=== PATIENT | female | born 1960 | race Caucasian/White ===

== ENCOUNTER 2017-12-03 00:43 | Emergency (ER) | payer OTHER, SELFPAY ==
[2017-12-03] VITALS (7 sets, daily range): BP systolic 130–159; BP diastolic 68–87; PULSE 90–107; RESP 12–20; TEMP 36.4–36.6; O2SAT 97–100; BMI 28.1
--- NOTE | 2017-12-03 00:47 | DI.US.S_ITS ---
PROCEDURE: US PERIPH VENOUS UP EXTREM RT INDICATIONS: pain, swelling RUE, recent surgeries, hx CA TECHNIQUE: Real-time imaging, as well as color and pulse Doppler interrogation, was performed of the right upper extremity deep veins from the inferior neck to the antecubital fossa. COMPARISON: None. FINDINGS: The internal jugular vein, visualized portions of the subclavian vein, axillary, and brachial veins are free of intraluminal thrombus. Where physically possible, the veins are normally compressible. Color and pulse Doppler demonstrate normal intraluminal flow, with expected phasicity and pulsatility. Additional scanning of the cephalic and basilic veins of the superficial system demonstrate normal compressibility, without thrombus. IMPRESSION: No DVT found. Dictated by: Lj Cheatham M.D. on 12/03/2017 at 9:21 Approved by: Lj Cheatham M.D. on 12/03/2017 at 9:21
--- NOTE | 2017-12-03 01:05 | ED.NAVMDI ---
HPI - Nausea/Vomiting/Diarrhea General Chief complaint: Nausea/Vomiting/Diarrhea Stated complaint: Vomiting Time Seen by Provider: 12/03/17 00:46 Source: patient, family and EMS Mode of arrival: EMS Limitations: no limitations History of Present Illness HPI Narrative: Pleasant 57-year-old female presents by air medical ambulance with her sister and a chief complaint intractable vomiting over the course of the day. 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 She has had multiple surgical complications the right shoulder tumor including most recently a revision flap about a month ago at [facility] in [place]. Additionally she complains of increasing pain at the base of her neck and right shoulder including swelling of the right upper extremity. She denies any injury nor numbness or tingling that is new. Patient states these circumstances are very similar to her prior experiences with wound infections from her initial surgery. Patient last received chemotherapy 8 weeks ago and last receive radiation prior to the surgery. Patient denies any abdominal pain but does complain significant nausea. MD complaint: nausea and vomiting Onset (ago): hour(s) Description of Vomiting: bilious Description of Diarrhea: none Associated Abdominal Pain: Yes Location of pain: diffuse Radiation: diffuse Quality: cramping Pain Consistency: constant Relieving factors: none Exacerbating factors: none Related Data Allergies Allergy/AdvReac Type Severity Reaction Status Date / Time No Known Drug Allergies Allergy Verified 12/03/17 01:19 Review of Systems Review of Systems All systems reviewed & are unremarkable except as noted in HPI and below Constitutional Denies chills, Denies fever(s), Denies lethargy and Reports weakness Eyes Denies change in vision, Denies eye discharge, Denies irritation and Denies loss of vision ENT Ears, Nose, Mouth, and Throat: Denies change in voice, Reports neck pain and Denies sore throat Cardiovascular Denies chest pain, Denies irregular heart rhythm, Denies lightheadedness, Denies palpitations, Denies dyspnea, Denies dyspnea on exertion and Denies orthopnea Respiratory Denies cough, Denies dyspnea, Denies dyspnea on exertion and Denies wheezing Gastrointestinal Gastrointestinal: Denies abdominal pain, Denies change in bowel habits, Denies diarrhea, Reports nausea and Reports vomiting Genitourinary Denies hematuria, Denies flank pain, Denies urinary incontinence and Denies urinary urgency Musculoskeletal Reports joint swelling, Reports limited range of motion and Reports neck pain Integumentary/Breasts Denies pruritus, Denies erythema, Denies rash and Denies wounds Neurologic Denies confusion, Denies loss of vision and Reports weakness Psychiatric Denies anxiety, Denies confusion, Denies depression, Denies homicidal ideation and Denies suicidal ideation Endocrine Denies palpitations Hematologic/Lymphatic Denies easy bruising Allergic/Immunologic Denies wheezing PFSH Medical History Leiomyosarcoma (Acute) Lymphoma (Acute) Status post chemoradiation (Acute) Exam Narrative Exam Narrative: Ill-appearing 57-year-old female in obvious distress, holding an emesis back Initial Vital Signs Initial Vital Signs: Vital Signs Temperature 97.9 F 12/03/17 00:45 Pulse Rate 107 H 12/03/17 00:45 Respiratory Rate 20 12/03/17 00:45 Blood Pressure 153/77 H 12/03/17 00:45 Pulse Oximetry 100 12/03/17 00:45 Const General: cooperative, well developed and acute distress Nutritional Appearance: well nourished and overweight Orientation: alert, awake, oriented x3 and not confused HENNV Head: normocephalic and atraumatic Ears: external ears normal and TM's normal bilaterally Nose: external nose normal and No nasal discharge Face and sinus: sinuses nontender, face symmetric, no sinus tenderness and No dry mucous membranes Mouth: oral mucosae normal and moist mucous membranes Teeth and gingiva: dentition normal Throat: tonsils normal and uvula midline Eyes General: appearance normal, both eyes and all related structures Eyelids: eyelids normal Conjunctivae: conjunctivae normal Sclera: sclerae normal Pupils: PERRL EOM: EOM intact bilaterally Neck Neck: trachea midline, No lymphadenopathy, No midline deformity and No JVD Lymphatic: No lymphedema Other: Erythema, induration and redness at base of right neck, location multiple prior surgeries. Patient states she thinks this may be her baseline but is unsure Chest Chest: normal inspection of the chest Resp Effort & Inspection: normal respiratory effort, able to speak in complete sentences, no respiratory distress and no use of accessory muscles Auscultation: clear to auscultation bilaterally, no rales, no rhonchi and no wheezes Cardio Rate: regular rate Rhythm: regular rhythm Heart Sounds: no click, no gallops, no murmurs and no rubs Pulses: normal peripheral pulses GI Inspection: non-distended Palpation: soft, no hepatosplenomegaly, No guarding, No pulsatile mass and No tender Auscultation: normal bowel sounds Back/Spine/Pelvis Back: No CVA tenderness Cervical Spine: cervical ROM normal and No pain with cervical ROM Thoracic/Lumbar Spine: thoracic and lumbar spine normal to inspection Skin General: no rashes or lesions noted, No jaundice and No petechiae Neuro General: alert, oriented x3, gait normal and no focal motor deficits Speech: speech normal Extrem General: full ROM, no clubbing, cyanosis or edema, no pedal edema and no calf tenderness Right upper extremity: edema Psych Appearance: well kempt Mental Status: mental status grossly normal Attitude: cooperative Thought Content: normal and suicidality Judgment: judgment good Course Orders Ordered: ED Orders 12/03/17 00:47 US periph venous up extrem rt Stat 12/03/17 01:33 Basic Metabolic Panel Stat Bilirubin Total Stat Complete Blood Count AUTO DIFF Stat Procalcitonin Stat 12/03/17 02:20 CT UE RT w con Stat 12/03/17 02:54 Blood Culture Stat Lactate (Lactic Acid) Stat Potassium Chloride 40 meq/ (Sodium Chloride) 520 mls @ 130 mls/hr IV NOW ONE Stop: 12/03/17 07:57 Last Admin: 12/03/17 04:42 Dose: 130 mls/hr Ondansetron HCl (Zofran) 4 mg IV Q4HR PRN PRN Reason: Nausea And Vomiting Last Admin: 12/03/17 01:48 Dose: 4 mg Discontinued Medications Sodium Chloride (Normal Saline 0.9%) 1,000 mls @ 1,000 mls/hr IV BOLUS ONE Stop: 12/03/17 04:44 Last Admin: 12/03/17 03:54 Dose: 1,000 mls/hr Metoclopramide HCl (Reglan) 10 mg IV NOW ONE Stop: 12/03/17 01:47 Last Admin: 12/03/17 01:48 Dose: 10 mg Pantoprazole Sodium (Protonix) 40 mg IV NOW ONE Stop: 12/03/17 00:52 Last Admin: 12/03/17 01:48 Dose: 40 mg Prochlorperazine (Compazine) 10 mg IV NOW ONE Stop: 12/03/17 06:12 Last Admin: 12/03/17 06:18 Dose: 10 mg Reevaluation(s) Reevaluation #1: Patient gained feel better in terms of her nausea. Above-stated meds have helped Consultations Consultation #1: Upon receipt of CT I placed a call to on-call orthopedics at [facility] in [place]. Upon discussing the findings and patient complaint we sure the opinion the patient is most appropriately transferred to [facility] for further evaluation, stabilization and treatment of this abscess. Additionally we sure the opinion that ER to ER transfer makes the most sense of the patient may be re-evaluated and have more rapid access to procedures. Furthermore orthopedics request no IV antibiotics at this time so as to not compromise culture of the abscess. Given the patient is not septic or even febrile this seems reasonable. Dr. Baca (ED) happy to accept patient on behalf of the ED at [facility]. Vital Signs - 8 hr 12/03/17 00:45 12/03/17 03:30 12/03/17 04:10 Temperature 97.9 F Pulse Rate 107 H 100 H 98 H Respiratory Rate 20 17 15 Blood Pressure 153/77 H Blood Pressure [Left Arm] 151/79 H 148/75 H Pulse Oximetry 100 98 12/03/17 04:12 12/03/17 05:01 12/03/17 06:12 Temperature 97.6 F Pulse Rate 101 H 97 H 99 H Respiratory Rate 16 15 12 Blood Pressure 130/68 H Blood Pressure [Left Arm] 159/83 H 159/87 H Pulse Oximetry 97 99 12/03/17 06:18 Temperature Pulse Rate 90 Respiratory Rate Blood Pressure 130/68 H Blood Pressure [Left Arm] Pulse Oximetry MDM - Nausea/Vomiting/Diarrhea Medical Records Attestation: I reviewed the patient's medical records. Lab Data Attestation: I reviewed the patient's lab results. Result diagrams: 12/03/17 01:33 12/03/17 01:33 Lab Results 12/03/17 12/03/17 12/03/17 Range/Units 01:33 01:33 01:33 WBC 9.3 (4.5-11.0) X10^3/uL RBC 3.79 L (4.0-5.2) X10^6/uL Hgb 10.8 L (12.0-16.0) g/dL Hct 32.5 L (36-46) % MCV 85.7 (80-100) fL MCH 28.4 (26-34) PG MCHC 33.2 (30-36) % RDW 14.7 (11.6-14.8) % Plt Count 351 (150-400) X10^3/uL Neut % (Auto) 86.3 H (50-75) % Lymph % (Auto) 8.9 L (25-40) % Simpson % (Auto) 4.4 (3-14) % Eos % (Auto) 0.0 L (2-4) % Baso % (Auto) 0.4 (0-2) % Neut # (Auto) 8000 H (5803-0844) /uL Platelet Estimate Clumped Platelets RBC Morphology Not Reportable Anisocytosis 1+ H Sodium 142 (137-145) mmol/L Potassium 3.1 L (3.4-5.1) mmol/L Chloride 104 (98-107) mmol/L Carbon Dioxide 25 (22-32) mmol/L BUN 11 (7-17) mg/dL Creatinine 0.80 (0.52-1.04) mg/dL Estimated GFR > 60.0 (>60) mL/min BUN/Creatinine Ratio 13.8 (6-22) Glucose 176 H (70-100) mg/dL Lactate (0.7-2.1) mmol/L Calcium 9.9 (8.4-10.2) mg/dL Total Bilirubin 0.6 (0.2-1.3) mg/dL Procalcitonin < 0.05 (<0.5) ng/mL 12/03/17 Range/Units 02:54 WBC (4.5-11.0) X10^3/uL RBC (4.0-5.2) X10^6/uL Hgb (12.0-16.0) g/dL Hct (36-46) % MCV (80-100) fL MCH (26-34) PG MCHC (30-36) % RDW (11.6-14.8) % Plt Count (150-400) X10^3/uL Neut % (Auto) (50-75) % Lymph % (Auto) (25-40) % Simpson % (Auto) (3-14) % Eos % (Auto) (2-4) % Baso % (Auto) (0-2) % Neut # (Auto) (8134-1633) /uL Platelet Estimate Clumped Platelets RBC Morphology Anisocytosis Sodium (137-145) mmol/L Potassium (3.4-5.1) mmol/L Chloride (98-107) mmol/L Carbon Dioxide (22-32) mmol/L BUN (7-17) mg/dL Creatinine (0.52-1.04) mg/dL Estimated GFR (>60) mL/min BUN/Creatinine Ratio (6-22) Glucose (70-100) mg/dL Lactate 1.6 (0.7-2.1) mmol/L Calcium (8.4-10.2) mg/dL Total Bilirubin (0.2-1.3) mg/dL Procalcitonin (<0.5) ng/mL Imaging Data Shoulder CT w/contrast: Radiologist's impression: Inflammatory stranding an ill-defined abnormal soft tissue density throughout the right lower neck supraclavicular region an axillary region, 5 mm focus of gas within soft tissue of the right lower neck, suspected phlegmon. 1.8 x 1.2 cm fluid collection containing small foci of gas adjacent to the right mid clavicle concerning for developing abscess. Airspace disease in right lung apex could represent infection or be secondary to radiation treatment RUE DVT US: Radiologist's impression: No DVT in right upper extremity MDM Narrative Medical decision making narrative: Patient has had all of her medical care regarding this diagnosis [facility] in [place]. She most recently had a complicated revision of a shoulder surgery 1 month ago. Her surgical group was contacted and they request she be transferred there for continuity of care Given the length of transfer and potential for rapid decline air transportation is the only reasonable option. Additionally [facility] was contacted and it would be no less than 10 hr from now that the patient would arrive at [facility]. [facility] has been contacted and will use fixed wing to transport patient. Critical Care Time Critical Care Time: Yes Total Critical Care Time: 45 Attestation: The high probability of a clinically significant, sudden or life threatening deterioration of the [cardiovascular, respiratory, musculoskeletal] system(s) required my full and direct attention, intervention and personal management. The aggregate critical care time was [45] minutes. This time is in addition to time spent performing reported procedures but includes the following: [x] Data Review and interpretation [x] Patient assessment and monitoring of vital signs [x] Documentation [x] Medication orders and management Discharge Plan Departure Patient Disposition: [facility] Clinical Impression: Complication, postoperative infection, Abscess of right shoulder Interventions: ED Discharge Assessment Last Done: 12/03/17 06:12
--- NOTE | 2017-12-03 01:09 | ED_ITS ---
HPI - Nausea/Vomiting/Diarrhea General Chief complaint: Nausea/Vomiting/Diarrhea Stated complaint: Vomiting Time Seen by Provider: 12/03/17 00:46 Source: patient, family and EMS Mode of arrival: EMS Limitations: no limitations History of Present Illness HPI Narrative: Pleasant 57-year-old female presents by air medical ambulance with her sister and a chief complaint intractable vomiting over the course of the day. 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 She has had multiple surgical complications the right shoulder tumor including most recently a revision flap about a month ago at [facility] in [place]. Additionally she complains of increasing pain at the base of her neck and right shoulder including swelling of the right upper extremity. She denies any injury nor numbness or tingling that is new. Patient states these circumstances are very similar to her prior experiences with wound infections from her initial surgery. Patient last received chemotherapy 8 weeks ago and last receive radiation prior to the surgery. Patient denies any abdominal pain but does complain significant nausea. MD complaint: nausea and vomiting Onset (ago): hour(s) Description of Vomiting: bilious Description of Diarrhea: none Associated Abdominal Pain: Yes Location of pain: diffuse Radiation: diffuse Quality: cramping Pain Consistency: constant Relieving factors: none Exacerbating factors: none Related Data Allergies Allergy/AdvReac Type Severity Reaction Status Date / Time No Known Drug Allergies Allergy Verified 12/03/17 01:19 Review of Systems Review of Systems All systems reviewed & are unremarkable except as noted in HPI and below Constitutional Denies chills, Denies fever(s), Denies lethargy and Reports weakness Eyes Denies change in vision, Denies eye discharge, Denies irritation and Denies loss of vision ENT Ears, Nose, Mouth, and Throat: Denies change in voice, Reports neck pain and Denies sore throat Cardiovascular Denies chest pain, Denies irregular heart rhythm, Denies lightheadedness, Denies palpitations, Denies dyspnea, Denies dyspnea on exertion and Denies orthopnea Respiratory Denies cough, Denies dyspnea, Denies dyspnea on exertion and Denies wheezing Gastrointestinal Gastrointestinal: Denies abdominal pain, Denies change in bowel habits, Denies diarrhea, Reports nausea and Reports vomiting Genitourinary Denies hematuria, Denies flank pain, Denies urinary incontinence and Denies urinary urgency Musculoskeletal Reports joint swelling, Reports limited range of motion and Reports neck pain Integumentary/Breasts Denies pruritus, Denies erythema, Denies rash and Denies wounds Neurologic Denies confusion, Denies loss of vision and Reports weakness Psychiatric Denies anxiety, Denies confusion, Denies depression, Denies homicidal ideation and Denies suicidal ideation Endocrine Denies palpitations Hematologic/Lymphatic Denies easy bruising Allergic/Immunologic Denies wheezing PFSH Medical History Leiomyosarcoma (Acute) Lymphoma (Acute) Status post chemoradiation (Acute) Exam Narrative Exam Narrative: Ill-appearing 57-year-old female in obvious distress, holding an emesis back Initial Vital Signs Initial Vital Signs: Vital Signs Temperature 97.9 F 12/03/17 00:45 Pulse Rate 107 H 12/03/17 00:45 Respiratory Rate 20 12/03/17 00:45 Blood Pressure 153/77 H 12/03/17 00:45 Pulse Oximetry 100 12/03/17 00:45 Const General: cooperative, well developed and acute distress Nutritional Appearance: well nourished and overweight Orientation: alert, awake, oriented x3 and not confused HENIL Head: normocephalic and atraumatic Ears: external ears normal and TM's normal bilaterally Nose: external nose normal and No nasal discharge Face and sinus: sinuses nontender, face symmetric, no sinus tenderness and No dry mucous membranes Mouth: oral mucosae normal and moist mucous membranes Teeth and gingiva: dentition normal Throat: tonsils normal and uvula midline Eyes General: appearance normal, both eyes and all related structures Eyelids: eyelids normal Conjunctivae: conjunctivae normal Sclera: sclerae normal Pupils: PERRL EOM: EOM intact bilaterally Neck Neck: trachea midline, No lymphadenopathy, No midline deformity and No JVD Lymphatic: No lymphedema Other: Erythema, induration and redness at base of right neck, location multiple prior surgeries. Patient states she thinks this may be her baseline but is unsure Chest Chest: normal inspection of the chest Resp Effort & Inspection: normal respiratory effort, able to speak in complete sentences, no respiratory distress and no use of accessory muscles Auscultation: clear to auscultation bilaterally, no rales, no rhonchi and no wheezes Cardio Rate: regular rate Rhythm: regular rhythm Heart Sounds: no click, no gallops, no murmurs and no rubs Pulses: normal peripheral pulses GI Inspection: non-distended Palpation: soft, no hepatosplenomegaly, No guarding, No pulsatile mass and No tender Auscultation: normal bowel sounds Back/Spine/Pelvis Back: No CVA tenderness Cervical Spine: cervical ROM normal and No pain with cervical ROM Thoracic/Lumbar Spine: thoracic and lumbar spine normal to inspection Skin General: no rashes or lesions noted, No jaundice and No petechiae Neuro General: alert, oriented x3, gait normal and no focal motor deficits Speech: speech normal Extrem General: full ROM, no clubbing, cyanosis or edema, no pedal edema and no calf tenderness Right upper extremity: edema Psych Appearance: well kempt Mental Status: mental status grossly normal Attitude: cooperative Thought Content: normal and suicidality Judgment: judgment good Course Orders Ordered: ED Orders 12/03/17 00:47 US periph venous up extrem rt Stat 12/03/17 01:33 Basic Metabolic Panel Stat Bilirubin Total Stat Complete Blood Count AUTO DIFF Stat Procalcitonin Stat 12/03/17 02:20 CT UE RT w con Stat 12/03/17 02:54 Blood Culture Stat Lactate (Lactic Acid) Stat Potassium Chloride 40 meq/ (Sodium Chloride) 520 mls @ 130 mls/hr IV NOW ONE Stop: 12/03/17 07:57 Last Admin: 12/03/17 04:42 Dose: 130 mls/hr Ondansetron HCl (Zofran) 4 mg IV Q4HR PRN PRN Reason: Nausea And Vomiting Last Admin: 12/03/17 01:48 Dose: 4 mg Discontinued Medications Sodium Chloride (Normal Saline 0.9%) 1,000 mls @ 1,000 mls/hr IV BOLUS ONE Stop: 12/03/17 04:44 Last Admin: 12/03/17 03:54 Dose: 1,000 mls/hr Metoclopramide HCl (Reglan) 10 mg IV NOW ONE Stop: 12/03/17 01:47 Last Admin: 12/03/17 01:48 Dose: 10 mg Pantoprazole Sodium (Protonix) 40 mg IV NOW ONE Stop: 12/03/17 00:52 Last Admin: 12/03/17 01:48 Dose: 40 mg Prochlorperazine (Compazine) 10 mg IV NOW ONE Stop: 12/03/17 06:12 Last Admin: 12/03/17 06:18 Dose: 10 mg Reevaluation(s) Reevaluation #1: Patient gained feel better in terms of her nausea. Above- stated meds have helped Consultations Consultation #1: Upon receipt of CT I placed a call to on-call orthopedics at [facility] in [place]. Upon discussing the findings and patient complaint we sure the opinion the patient is most appropriately transferred to [facility] for further evaluation, stabilization and treatment of this abscess. Additionally we sure the opinion that ER to ER transfer makes the most sense of the patient may be re -evaluated and have more rapid access to procedures. Furthermore orthopedics request no IV antibiotics at this time so as to not compromise culture of the abscess. Given the patient is not septic or even febrile this seems reasonable. Dr. Baca (ED) happy to accept patient on behalf of the ED at [facility]. Vital Signs - 8 hr 12/03/17 00:45 12/03/17 03:30 12/03/17 04:10 Temperature 97.9 F Pulse Rate 107 H 100 H 98 H Respiratory Rate 20 17 15 Blood Pressure 153/77 H Blood Pressure [Left Arm] 151/79 H 148/75 H Pulse Oximetry 100 98 12/03/17 04:12 12/03/17 05:01 12/03/17 06:12 Temperature 97.6 F Pulse Rate 101 H 97 H 99 H Respiratory Rate 16 15 12 Blood Pressure 130/68 H Blood Pressure [Left Arm] 159/83 H 159/87 H Pulse Oximetry 97 99 12/03/17 06:18 Temperature Pulse Rate 90 Respiratory Rate Blood Pressure 130/68 H Blood Pressure [Left Arm] Pulse Oximetry MDM - Nausea/Vomiting/Diarrhea Medical Records Attestation: I reviewed the patient's medical records. Lab Data Attestation: I reviewed the patient's lab results. Result diagrams: 12/03/17 01:33 12/03/17 01:33 Lab Results 12/03/17 12/03/17 12/03/17 Range/Units 01:33 01:33 01:33 WBC 9.3 (4.5-11.0) X10^3/uL RBC 3.79 L (4.0-5.2) X10^6/uL Hgb 10.8 L (12.0-16.0) g/dL Hct 32.5 L (36-46) % MCV 85.7 (80-100) fL MCH 28.4 (26-34) PG MCHC 33.2 (30-36) % RDW 14.7 (11.6-14.8) % Plt Count 351 (150-400) X10^3/uL Neut % (Auto) 86.3 H (50-75) % Lymph % (Auto) 8.9 L (25-40) % [place] % (Auto) 4.4 (3-14) % Eos % (Auto) 0.0 L (2-4) % Baso % (Auto) 0.4 (0-2) % Neut # (Auto) 8000 H (5448-0843) /uL Platelet Estimate Clumped Platelets RBC Morphology Not Reportable Anisocytosis 1+ H Sodium 142 (137-145) mmol/L Potassium 3.1 L (3.4-5.1) mmol/L Chloride 104 (98-107) mmol/L Carbon Dioxide 25 (22-32) mmol/L BUN 11 (7-17) mg/dL Creatinine 0.80 (0.52-1.04) mg/dL Estimated GFR > 60.0 (>60) mL/min BUN/Creatinine Ratio 13.8 (6-22) Glucose 176 H (70-100) mg/dL Lactate (0.7-2.1) mmol/L Calcium 9.9 (8.4-10.2) mg/dL Total Bilirubin 0.6 (0.2-1.3) mg/dL Procalcitonin < 0.05 (<0.5) ng/mL 12/03/17 Range/Units 02:54 WBC (4.5-11.0) X10^3/uL RBC (4.0-5.2) X10^6/uL Hgb (12.0-16.0) g/dL Hct (36-46) % MCV (80-100) fL MCH (26-34) PG MCHC (30-36) % RDW (11.6-14.8) % Plt Count (150-400) X10^3/uL Neut % (Auto) (50-75) % Lymph % (Auto) (25-40) % [place] % (Auto) (3-14) % Eos % (Auto) (2-4) % Baso % (Auto) (0-2) % Neut # (Auto) (6623-5173) /uL Platelet Estimate Clumped Platelets RBC Morphology Anisocytosis Sodium (137-145) mmol/L Potassium (3.4-5.1) mmol/L Chloride (98-107) mmol/L Carbon Dioxide (22-32) mmol/L BUN (7-17) mg/dL Creatinine (0.52-1.04) mg/dL Estimated GFR (>60) mL/min BUN/Creatinine Ratio (6-22) Glucose (70-100) mg/dL Lactate 1.6 (0.7-2.1) mmol/L Calcium (8.4-10.2) mg/dL Total Bilirubin (0.2-1.3) mg/dL Procalcitonin (<0.5) ng/mL Imaging Data Shoulder CT w/contrast: Radiologist's impression: Inflammatory stranding an ill-defined abnormal soft tissue density throughout the right lower neck supraclavicular region an axillary region, 5 mm focus of gas within soft tissue of the right lower neck, suspected phlegmon. 1.8 x 1.2 cm fluid collection containing small foci of gas adjacent to the right mid clavicle concerning for developing abscess. Airspace disease in right lung apex could represent infection or be secondary to radiation treatment RUE DVT US: Radiologist's impression: No DVT in right upper extremity MDM Narrative Medical decision making narrative: Patient has had all of her medical care regarding this diagnosis [facility] in [place]. She most recently had a complicated revision of a shoulder surgery 1 month ago. Her surgical group was contacted and they request she be transferred there for continuity of care Given the length of transfer and potential for rapid decline air transportation is the only reasonable option. Additionally [facility] was contacted and it would be no less than 10 hr from now that the patient would arrive at [facility]. [facility] has been contacted and will use fixed wing to transport patient. Critical Care Time Critical Care Time: Yes Total Critical Care Time: 45 Attestation: The high probability of a clinically significant, sudden or life threatening deterioration of the [cardiovascular, respiratory, musculoskeletal] system(s) required my full and direct attention, intervention and personal management. The aggregate critical care time was [45] minutes. This time is in addition to time spent performing reported procedures but includes the following: [x] Data Review and interpretation [x] Patient assessment and monitoring of vital signs [x] Documentation [x] Medication orders and management Discharge Plan Departure Patient Disposition: [facility] Clinical Impression: Complication, postoperative infection, Abscess of right shoulder Interventions: ED Discharge Assessment Last Done: 12/03/17 06:12
[2017-12-03] MEDS: ONDANSETRON 4 MG/2 ML INJ IV (01:48)
[2017-12-03] MEDS: PANTOPRAZOLE 40 MG VIAL IV (01:48)
[2017-12-03] MEDS: METOCLOPRAMIDE 10 MG/2 ML INJ IV (01:48)
--- NOTE | 2017-12-03 02:20 | DI.CT.S_ITS ---
PROCEDURE: CT UE RT W CON INDICATIONS: pain, swelling, redness, possible infection in an area treatment for prior sarcoma TECHNIQUE: After the administration of intravenous contrast, 3 mm axial sections acquired of the right chest and shoulder area, with coronal and sagittal reformats. COMPARISON: None. FINDINGS: Image quality: Excellent. Bones: Prior trauma to the humeral head and neck on the right, with multiple fixation screws crossing a lateral fixation plate, establishing normal alignment in the area of prior extensive fracture. No definite osteolytic or blastic lesion is seen. Mild heterogeneity of the scapular radiodensity is present consistent with prior radiation therapy through the right upper chest and supraclavicular area. No osteomyelitis found. Soft tissues: There is edema involving the supraclavicular fossa and axillary region on the right, rendering tissue planes somewhat indistinct. Within the anterior soft tissues of the base of the right neck one identifiable gas bubble is found, best seen centered on series 3 image 30. A discrete rim-enhancing fluid collection that would indicate abscess formation is not found in this area or elsewhere, but the inflammatory process associated with the edema in the subcutaneous fat over the lateral border of the supraclavicular fossa and extending into the upper right axilla may represent phlegmonous change. Note is made of fibrotic change within the right upper lung parenchyma with a combination of cylindrical bronchiectasis in alveolar consolidation, chronic in appearance, and most consistent with post radiation fibrosis. IMPRESSION: By clinical report a prior sarcoma has been treated in the area of current clinical concern to include radiation therapy. There is a single gas bubble in the soft tissues of the base of the right neck as it transitions into the supraclavicular fossa, and through this area and more inferiorly extending into the upper right axilla prominent indistinct soft tissue edema appears present. Phlegmon may be present in this area but a identified abscess is not seen. Improved tissue detail could be obtained utilizing MR scanning without and with contrast. Note is made of apical right lung fibrotic change with some degree of volume loss deviating the trachea towards that area, consistent with prior radiation therapy. No lung mass or osteolytic/blastic bone lesion is identified. Old trauma to the right humeral head and neck, with multiple fixation screws and a lateral fixation plate establishing normal alignment. Osteomyelitis in this area is not identified but quality of visualization is somewhat limited by metal artifact from the orthopedic devices. Note: These findings are concordant with the preliminary interpretation. Dictated by: Lj Cheatham M.D. on 12/03/2017 at 9:29 Approved by: Lj Cheatham M.D. on 12/03/2017 at 9:46
[2017-12-03 02:51] LABS: BUN Creatinine Ratio 13.8 (6-22); Bilirubin Total 0.6 mg/dL (0.2-1.3); Blood Urea Nitrogen 11 mg/dL (7-17); Calcium 9.9 mg/dL (8.4-10.2); Carbon Dioxide 25 mmol/L (22-32); Chloride 104 mmol/L (98-107); Estimated Glomerular Filt Rate > 60.0 mL/min (>60); Glucose 176 mg/dL (70-100); HEMOLYSIS 18 (0-50); Potassium 3.1 mmol/L (3.4-5.1); Sodium 142 mmol/L (137-145)
[2017-12-03 03:00] LABS: Add Manual Diff / Slide Review NO; Basophils Percent Auto 0.4 % (0-2); Hematocrit 32.5 % (36-46); Hemoglobin 10.8 g/dL (12.0-16.0); Lymphocytes Percent Auto 8.9 % (25-40); Mean Corpuscular HGB Conc 33.2 % (30-36); Mean Corpuscular Hemoglobin 28.4 PG (26-34); Mean Corpuscular Volume 85.7 fL (80-100); Monocytes Percent Auto 4.4 % (3-14); Neutrophils Absolute Auto 8000 /uL (3000-5900); Neutrophils Percent Auto 86.3 % (50-75); Platelet Count 351 X10^3/uL (150-400); Red Blood Cell Count 3.79 X10^6/uL (4.0-5.2); Red Cell Distribution Width 14.7 % (11.6-14.8); White Blood Cell Count 9.3 X10^3/uL (4.5-11.0)
--- NOTE | 2017-12-03 03:06 | PC.NURSE ---
pt. to ct scan via stretcher
[2017-12-03 03:15] LABS: Lactate (Lactic Acid) 1.6 mmol/L (0.7-2.1)
[2017-12-03 03:17] LABS: Procalcitonin < 0.05 ng/mL (<0.5)
[2017-12-03 03:22] LABS: Anisocytosis 1+
[2017-12-03] MEDS: SODIUM CHLORIDE 0.9% 1,000 ML 1000 ML IV (03:54)
--- NOTE | 2017-12-03 03:58 | PC.NURSE ---
0310 bed side cammode to BS per pt. request
[2017-12-03] MEDS: POTASSIUM CHLORIDE 40 MEQ in SODIUM CHLORIDE 0.9% 500 ML 130 ML IV (04:42)
[2017-12-03] MEDS: PROCHLORPERAZINE 10 MG/2 ML VIAL IV (06:18)
== END 2017-12-03 07:02 | disposition short-term general hospital (02) ==
PROVIDERS: Emergency Provider Emergency Medicine
DX: T81.4XXA Infection following a procedure, initial encounter (principal); L02.413 Cutaneous abscess of right upper limb
CPT/HCPCS: 36415; 36591; 73201; 80048; 82247; 83605; 84145; 85025; 87040; 93971; 96361; 96374; 96375; 99284; 99285; C9113; J0780; J2405; J2765; J3480; Q9967